=== PATIENT | female | born 1950 | race Caucasian/White ===

== ENCOUNTER → 2018-09-12 11:46 | Outpatient (CLI) | payer MEDICARE, OTHER, SELFPAY ==
--- NOTE | 2018-09-12 | DI.RAD.S_ITS ---
PROCEDURE: XR CHEST 2V INDICATIONS: ACUTE COUGH, DECREASED BREATH SOUNDS TECHNIQUE: 2 views of the chest were acquired. COMPARISON: None. FINDINGS: Surgical changes and devices: None. Lungs and pleura: No pleural effusions or pneumothorax. Subtle infiltrate in the right lower lobe. There is a nodular density in the left lower lung zone likely caused by the the nipple shadow. Hyperinflation consistent with COPD. Mediastinum: Mediastinal contours are normal. Heart size is normal. Bones and chest wall: No suspicious bony abnormalities. Soft tissues appear unremarkable. IMPRESSION: 1. Subtle infiltrate in the right lower lobe suggesting developing pneumonia. 2. Suspect COPD. Dictated by: Idalia Mcgee M.D. on 09/12/2018 at 13:49 Approved by: Idalia Mcgee M.D. on 09/12/2018 at 13:51
== END ==
PROVIDERS: PCP Nurse Practitioner Family; Visit Provider Nurse Practitioner Family
DX: R05 Cough (principal); R09.89 Other specified symptoms and signs involving the circulatory and respiratory systems
CPT/HCPCS: 71046

== ENCOUNTER → 2019-01-12 11:03 | Outpatient (CLI) | payer MEDICARE, OTHER, SELFPAY ==
--- NOTE | 2019-01-12 | DI.US.S_ITS ---
PROCEDURE: US THYROID INDICATIONS: THYROID NODULE FOLLOW UP TECHNIQUE: Real-time scanning was performed of the thyroid gland, with image documentation. COMPARISON: [facility], US, US THYROID, 01/23/2018, 10:25. FINDINGS: Right: Thyroid lobe measures 4.5 x 1.6 x 1.4 cm, and is homogeneous in echotexture. Left: Thyroid lobe measures 4.4 x 1.5 x 1.2 cm, and is homogenous in echotexture. Nodule number: 1 Location: Right superior Size: 0.7 x 0.4 x 0.5 cm. Composition: Predominantly cystic Echogenicity: Markedly hypoechoic Shape: Wider than tall Margins: Smooth Echogenic foci: Macro-calcifications Total points: 5 ACR TI-RADS category: Moderately suspicious Nodule number: 2 Location: Right inferior Size: 1.6 x 0.7 x 1.1 cm. Composition: Predominantly solid Echogenicity: Hypoechoic Shape: Wider than tall Margins: Smooth Echogenic foci: Macrocalcifications Total points: 4 ACR TI-RADS category: Moderately suspicious Nodule number: 3 Location: Left superior Size: 0.8 x 0.7 x 0.7 cm. Composition: Predominantly solid Echogenicity: Hypoechoic Shape: Wider than tall Margins: Ill-defined Echogenic foci: None Total points: 4 ACR TI-RADS category: Moderately suspicious Nodule number: 4 Location: Left mid Size: 2.8 x 0.7 x 0.7 cm. Composition: Predominantly solid Echogenicity: Isoechoic Shape: Wider than tall Margins: Smooth Echogenic foci: None Total points: 3 ACR TI-RADS category: Mildly suspicious IMPRESSION: Numerous thyroid nodules. Nodules 1-3 demonstrate moderate suspicious ultrasound characteristics. Nodule 4 is new and demonstrates mildly suspicious ultrasound characteristics. Nodule involving the inferior margin of the right lobe of the thyroid gland (nodule 2) is increased in size compared to 01/23/2018. Consider ultrasound-guided fine needle aspiration of thyroid nodules if clinically indicated. ACR TI-RADS definitions and recommendations: TI-RADS 1 (benign): 0 points. FNA not needed. TI-RADS 2 (not suspicious): 2 points. FNA not needed. TI-RADS 3 (mildly suspicious): 3 points. * FNA if 2.5 cm or larger, follow up if 1.5 cm or larger (at 1, 3, and 5 years). TI-RADS 4 (moderately suspicious): 4-6 points. * FNA if 1.5 cm or larger, follow up if 1 cm or larger (at 1, 2, 3, and 5 years). TI-RADS 5 (highly suspicious): 7 points or more. * FNA if 1 cm or larger, follow up if 0.5 cm or larger (every year for 5 years). Dictated by: Brie Wade MD, PhD on 01/12/2019 at 14:18 Approved by: Brie Wade MD, PhD on 01/12/2019 at 14:33
== END ==
PROVIDERS: PCP Nurse Practitioner Family; Visit Provider Nurse Practitioner Family
DX: E04.2 Nontoxic multinodular goiter (principal)
CPT/HCPCS: 76536

== ENCOUNTER → 2019-02-02 13:47 | Outpatient (CLI) | payer MEDICARE, OTHER, SELFPAY ==
--- NOTE | 2019-02-02 | PATH_ITS ---
Note [facility] Accession Number: [id number] TESTS RESULT FLAG UNITS REF RANGE LAB Clinician Provided Cytology Information No. of containers..01 ThinPrep Vial No. of containers..06 Previously Prepared Cytology Slide RIGHT THYROID NODULE DIAGNOSIS: 02 RIGHT THYROID NODULE INCONCLUSIVE. BETHES[place] CATEGORY III. ATYPIA OF UNDETERMINED SIGNIFICANCE. COMMENT: Scant follicular cell groups are present with rare groups that demonstrate focal cytologic atypa. A repeat aspirate after an appropriate interval of observation could be considered, if clinically indicated. Pathologist ICD10: 02 R89.6 02 Bhargavi Bernal MD, Pathologist NPI- [id number] Skinny Chaudhari, Electrical Design Technician ([facility]) 01 30 CC, PINK, CLEAR RECEIVED: 8 ALCOHOL FIXED AND 8 QUICK STAINED SLIDES WITH 1 RNA VIAL FOR FURTHER TESTING. /VDU FLAG LEGEND: L-Low Normal,H-High Normal,LL-Alert Low,HH-Alert High <-Panic Low,>-Panic High,A-Abnormal,AA-Critical Abnormal Performed at: 01 =Z [facility] [address], [place] [address] Brayden Preciado MD, 02 [facility] [address] [place] [id number] Julianne Moore MD, Performed at: 01 [facility] [address], [place], [place] [id number] MD Brayden Preciado MD Phone: [phone]
--- NOTE | 2019-02-02 | DI.US.S_ITS ---
PROCEDURE: US FINE NEEDLE ASPIRATION INDICATIONS: THYROID NODULES TECHNIQUE: The indications, alternatives, benefits, risks, and complications of the procedure were explained to the patient. Written informed consent was obtained and placed in the chart. The area of interest was examined sonographically and a site was chosen for ultrasound guided percutaneous sampling. The skin was prepared and draped in the usual fashion, and anesthetized with 1% lidocaine infiltrated from the skin down to the lesion. Multiple passes were then performed, with contents emptied into an appropriate pathology specimen container. A bandage was applied to the area of access at completion of the study. COMPARISON: None. FINDINGS: Location(s) of lesion(s) sampled: Inferior right lobe [place]: 22 and 25 gauge hypodermic needles. Number of passes: 9 Medications: 1% lidocaine for local anaesthesia. Complications: None. IMPRESSION: Successful ultrasound-guided inferior right lobe thyroid nodule fine needle aspiration, with cytology results pending. Dictated by: Rupert Esqueda M.D. on 02/02/2019 at 16:58 Approved by: Rupert Esqueda M.D. on 02/02/2019 at 16:59
== END ==
PROVIDERS: PCP Nurse Practitioner Family; Visit Provider Nurse Practitioner Family
DX: E04.2 Nontoxic multinodular goiter (principal)
CPT/HCPCS: 10005

== ENCOUNTER → 2019-06-19 11:54 | Outpatient (CLI) | payer MEDICARE, OTHER, SELFPAY ==
--- NOTE | 2019-06-19 | DI.US.S_ITS ---
PROCEDURE: US PELVIC COMPLETE INDICATIONS: PELVIC PAIN TECHNIQUE: Real-time scanning was performed of the pelvic organs, with image documentation. Additional endovaginal scanning was necessary due to incomplete visualization of the adnexal and endometrial structures by transabdominal scanning. COMPARISON: [place], [place], PET/CT NECK TO MID THIGH, 05/23/2013, 9:13. FINDINGS: Transabdominal scanning: Limited scanning through the kidneys shows no hydronephrosis. Complex cyst involves a inferior pole of the right kidney measuring 3.1 x 3.0 x 2.5 cm which appears unchanged from prior PET scan dated 05/23/13. Simple cyst involves the midpole of the left kidney measuring 1.8 x 1.7 x 1.6 cm. No pathologic free abdominal or pelvic fluid. Endovaginal scanning: Uterus: Uterus is normal in size at 6.1 x 4.4 x 2.5 cm. The endometrium measures 3.8 mm in combined thickness. Mild amount of endometrial fluid present. Posterior intramural fibroid measuring 1.3 x 1.2 x 1.2 cm. 2 subserosal fibroids, largest measuring 1.7 x 1.6 x 1.3 cm and the smaller 1.6 x 1.5 x 0.8 cm. Ovaries: Ovaries are normal bilaterally measuring 1.8 x 1.4 x 0.9 cm on the right and 1.7 x 1.4 x 1.0 cm on the left. Urinary bladder diverticulum noted. IMPRESSION: 1. No source for pelvic pain identified. 2. Uterine fibroids, largest measuring up to 1.7 cm. 3. Complex cyst (Bosniak 2F) involves the right kidney which is unchanged in size compared to prior PET scan. Continued sonographic surveillance is recommended. 4. Urinary bladder diverticulum. Dictated by: Kev JARRETT Interpreted: Brie Wade MD on 06/20/2019 at 8:16 Approved by: Brie Wade MD, PhD on 06/20/2019 at 10:34
== END ==
PROVIDERS: PCP Nurse Practitioner Family; Visit Provider Nurse Practitioner Family
DX: R10.2 Pelvic and perineal pain (principal); D25.1 Intramural leiomyoma of uterus; D25.2 Subserosal leiomyoma of uterus; N28.1 Cyst of kidney, acquired; N32.3 Diverticulum of bladder
CPT/HCPCS: 76830; 76856

== ENCOUNTER → 2019-10-18 11:35 | Outpatient (CLI) | payer MEDICARE, OTHER, SELFPAY | PROVIDERS: PCP Nurse Practitioner Family; Visit Provider Nurse Practitioner Family | DX: R20.9 Unspecified disturbances of skin sensation (principal); R20.0 Anesthesia of skin | CPT/HCPCS: 95886; 95909 ==

== ENCOUNTER → 2020-01-17 10:53 | Outpatient (CLI) | payer MEDICARE, OTHER, SELFPAY ==
--- NOTE | 2020-01-17 | DI.US.S_ITS ---
PROCEDURE: US ABDOMEN COMPLETE INDICATIONS: ABDOMINAL PAIN TECHNIQUE: Real-time scanning was performed of the abdominal and retroperitoneal organs, with image documentation. COMPARISON: None. FINDINGS: Liver: Liver is normal in size and homogeneous in echotexture. Gallbladder: Status post cholecystectomy Biliary ducts: Intrahepatic bile ducts are non-dilated. Extrahepatic bile duct caliber measures 5-6 mm. Normal is 6-7 mm or less in diameter, or 10 mm or less post-cholecystectomy. Pancreas: Visualized portions of the pancreas are sonographically normal. Spleen: Spleen is normal in size and homogeneous in echotexture. Kidneys: Kidneys are normal in size and echotexture. Right kidney measures 9.0 cm long; left kidney measures 9.0 cm long. No hydronephrosis or nephrolithiasis. No solid masses. Complex right renal cyst measuring 2.7 x 2.4 x 2.5 cm with poorly defined low level internal echoes. Simple appearing left renal cyst measuring 2.0 x 1.6 x 1.3 cm Aorta: Visualized aorta is normal in caliber at less than 3 cm. Scattered vascular calcifications seen in the aorta. Iliacs: Proximal common iliac arteries are normal in caliber at less than 2.5 cm. IVC: Intrahepatic inferior vena cava is patent. Miscellaneous: No free abdominal fluid. Incidentally noted left pleural effusion IMPRESSION: Mildly complex right renal cyst with low level internal echoes. Recommend followup ultrasound in 6 months to document stability, given the absence of any relevant prior comparison studies. Simple left renal cyst Status postcholecystectomy Incidentally noted left pleural effusion Dictated by: uRpert Esqueda M.D. on 01/17/2020 at 14:27 Approved by: Rupert Esqueda M.D. on 01/17/2020 at 14:32
--- NOTE | 2020-01-17 | DI.US.S_ITS ---
PROCEDURE: US PELVIC COMPLETE INDICATIONS: POSTMENOPAUSAL BLEEDING TECHNIQUE: Real-time scanning was performed of the pelvic organs, with image documentation. Additional endovaginal scanning was necessary due to incomplete visualization of the adnexal and endometrial structures by transabdominal scanning. COMPARISON: [facility], PELVIC COMPLETE, 06/19/2019, 12:27. FINDINGS: Transabdominal scanning: Limited scanning through the kidneys shows no hydronephrosis. No pathologic free abdominal or pelvic fluid. Endovaginal scanning: Uterus: Uterus is normal in size at 7.2 x 2.7 x 3.9 cm. The endometrium measures 3.9 mm in combined thickness. Trace endometrial fluid. 2 subserosal fibroids, largest measured 1.6 cm and there is a 1.5 cm intramural fibroid. Ovaries: Ovaries normal in size measuring 1.9 x 1.2 x 1.5 cm on the right and 1.4 x 0.9 x 0.9 centimeters on the left. No ovarian or adnexal masses. IMPRESSION: 1. Endometrial complex within normal limits and there is trace endometrial fluid. 2. Multiple fibroids, largest measuring up to 1.6 cm. Dictated by: Kev Wright [facility] Interpreted: Vanna Burciaga MD on 01/17/2020 at 14:51 Approved by: Vanna Burciaga M.D. on 01/17/2020 at 16:02
== END ==
PROVIDERS: PCP Internal Medicine; Referring Provider Internal Medicine; Visit Provider Internal Medicine
DX: R10.9 Unspecified abdominal pain (principal); N95.0 Postmenopausal bleeding; J90 Pleural effusion, not elsewhere classified; N28.1 Cyst of kidney, acquired; D25.2 Subserosal leiomyoma of uterus; D25.1 Intramural leiomyoma of uterus; Z90.49 Acquired absence of other specified parts of digestive tract
CPT/HCPCS: 76700; 76830; 76856

== ENCOUNTER 2021-06-21 12:00 | Emergency (ER) | payer MEDICARE, OTHER, SELFPAY ==
[2021-06-21 12:16] VITALS: BP 109/52; PULSE 104; RESP 16; TEMP 37; O2SAT 95; BMI 18.3
--- NOTE | 2021-06-21 12:19 | DI.RAD.S_ITS ---
PROCEDURE: XR CHEST 2V INDICATIONS: cough TECHNIQUE: 2 views of the chest were acquired. COMPARISON: [facility], CR, CHEST 2VW, 02/06/2014, 13:01. [facility], CR, XR CHEST 2 VIEWS, 08/23/2018, 13:15. FINDINGS: Surgical changes and devices: There is a right upper quadrant clips. Lungs and pleura: A small to moderate left-sided pleural effusion is seen, with overlying density. No pneumothorax is seen. No focal infiltrates are seen. Mediastinum: Mediastinal contours are normal. Heart size is normal. Atherosclerotic calcification of the aortic arch is noted. Bones and chest wall: No suspicious bony abnormalities. Age-appropriate bony degenerative changes are seen. Soft tissues appear unremarkable. IMPRESSION: Small to moderate left-sided pleural effusion, with overlying presumed atelectasis. Dictated by: Galo Luna M.D. on 06/21/2021 at 11:56 Approved by: Galo Luna M.D. on 06/21/2021 at 11:57
[2021-06-21 12:52] LABS: COVID19 -Nasal RAPID Negative (Negative)
[2021-06-21 13:16] VITALS: BP 129/60; PULSE 98; TEMP 36.8; O2SAT 92
--- NOTE | 2021-06-21 14:39 | ED.SOB ---
HPI - SOB/Dyspnea General Chief Complaint: Upper Respiratory Symptoms Stated Complaint: cough/headache/shortness of breath /stomach ache Time Seen by Provider: 06/21/21 14:26 History of Present Illness HPI Narrative: Patient is a 71-year-old female with remote history of lung cancer previously treated, presenting today with 5 days of cough. She and her state that they received COVID vaccination in December. She is followed in [place] for her cancer where she is scans every 6 months and she had a scan a few weeks ago they stated everything was the same. She is known to have some fluid on her left lung but it seems stable. She denies any fever or chills. She is having some weakness. She is not noting any significant shortness of breath. But does have an obvious cough. She denies any chest pain. Has been states that she is having abdominal pain although she denies having abdominal pain. She has gone 1 day without a bowel movement which is abnormal for her. She denies any nausea or vomiting. She denies any orthopnea or lower extremity edema. Related Data Home Medications Medication Instructions Recorded Confirmed [NEXIUM] 30 mg PO Q DAY #0 02/22/13 Previous Rx's Medication Instructions Recorded albuterol sulfate 90 mcg/actuation 2 puff INHALATION Q4-6H PRN #8.5 06/21/21 aerosol inhaler gram doxycycline hyclate 100 mg capsule 100 mg PO BID #14 cap 06/21/21 prednisone 20 mg tablet 40 mg PO DAILY #10 tab 06/21/21 Allergies Allergy/AdvReac Type Severity Reaction Status Date / Time PENICILLIN Allergy Mild Uncoded 02/22/18 12:24 Review of Systems Review of Systems Narrative: GENERAL: Denies chills, fatigue, malaise, fever, sweats, travel HEENT: Denies sinus pain, ear pain, sore throat, difficulty swallowing, neck pain RESPIRATORY: See HPI CARDIOVASCULAR: Denies chest pain, palpitations, orthopnea, edema GASTROINTESTINAL: Denies nausea, vomiting, abdominal pain, diarrhea, constipation, melena. : Denies dysuria, frequency, incontinence, hematuria, urinary retention, flank pain. MUSCULOSKELETAL: Denies weakness, joint pain, or bony pain SKIN: No rash, no erythema, no pruritus NEUROLOGIC: Denies weakness, dizziness, headache, numbness, change in speech, confusion PSYCHIATRIC: No concerning psychosocial issues. 12 point review of systems is negative except for those stated above and HPI Patient History Social History Smoking Status: Former smoker Smoking Status: Former smoker alcohol intake frequency: holidays/special occasions only Substance Use Type: does not use Exam Initial Vital Signs Initial Vital Signs: Vital Signs Temperature 98.6 F 06/21/21 12:16 Pulse Rate 104 H 06/21/21 12:16 Respiratory Rate 16 06/21/21 12:16 Blood Pressure 109/52 L 06/21/21 12:16 Pulse Oximetry 95 06/21/21 12:16 GENERAL: Alert thin 71-year-old female HEENT: Head atraumatic,EOMI, pupils reactive, face symmetric, moist mucous membranes CARDIOVASCULAR: Regular rate and rhythm without murmurs, rubs or gallops. RESPIRATORY: Slightly decreased breath sounds on the left side no wheezing no respiratory distress ABDOMEN: Soft, nontender. Normoactive bowel sounds all 4 quadrants. No guarding or rebound. EXTREMITIES: Normal range of motion, no clubbing or edema. Neurovascularly intact NEUROLOGICAL: Alert and oriented x4.Normal gait and speech. SKIN: Warm, dry, no laceration, no petechiae, no rashes or lesions. Course Orders Ordered: ED Orders 06/21/21 12:19 XR chest 2V Stat 06/21/21 12:25 COVID19 -Nasal swab/Pre-Proc Stat 06/21/21 14:36 Consult to Respiratory Therapy Evaluate & Treat 06/21/21 14:45 Complete Blood Count AUTO DIFF Stat Comprehensive Metabolic Panel Stat Lactate (Lactic Acid) Stat Magnesium Stat NT-proBNP (BNP-Adult 18+) Stat Procalcitonin Stat Troponin & CK Cardiac Panel Stat 06/21/21 15:19 EKG-12 Lead Stat 06/21/21 15:35 Blood Culture Stat Discontinued Medications Albuterol/Ipratropium (Albuterol/Ipratropium 3 Ml Ampul) 3 ml INH NOW ONE Stop: 06/21/21 14:37 Last Admin: 06/21/21 14:50 Dose: 3 ml Documented by: LORENZA Methylprednisolone (Methylprednisolone 125 Mg/2 Ml Vial) 125 mg IV NOW ONE Stop: 06/21/21 14:37 Last Admin: 06/21/21 15:03 Dose: 125 mg Documented by: HANSA Vital Signs Vital signs: Vital Signs - 8 hr 06/21/21 12:16 06/21/21 13:16 06/21/21 14:54 Temperature 98.6 F 98.3 F Pulse Rate 104 H 98 H 90 Respiratory Rate 16 20 Blood Pressure 109/52 L 129/60 Pulse Oximetry 95 92 97 06/21/21 15:00 06/21/21 15:57 Temperature 99 F 99 F Pulse Rate 95 H 95 H Respiratory Rate 18 18 Blood Pressure 124/60 124/60 Pulse Oximetry 96 96 MDM - SOB/Dyspnea Lab Data Result diagrams: 06/21/21 14:45 06/21/21 14:45 Labs: Lab Results 06/21/21 06/21/21 06/21/21 Range/Units 12:25 14:45 14:45 WBC 16.2 H (4.5-11.0) X10^3/uL RBC 4.48 (4.0-5.2) X10^6/uL Hgb 12.7 (12.0-16.0) g/dL Hct 38.6 (36-46) % MCV 86.1 (80-100) fL MCH 28.4 (26-34) PG MCHC 33.0 (30-36) % RDW 15.1 H (11.6-14.8) % Plt Count 407 H (150-400) X10^3/uL Neut % (Auto) 91.1 H (50-75) % Lymph % (Auto) 3.2 L (25-40) % [place] % (Auto) 5.2 (3-14) % Eos % (Auto) 0.3 L (2-4) % Baso % (Auto) 0.2 (0-2) % Neut # (Auto) 15775 H (5699-4840) /uL Lymph # (Auto) 500 L (5507-2097) /uL [place] # (Auto) 800 (0-900) /uL Eos # (Auto) 100 (0-450) /uL Baso # (Auto) 0 (0-100) /uL Sodium (137-145) mmol/L Potassium (3.4-5.1) mmol/L Chloride (98-107) mmol/L Carbon Dioxide (22-32) mmol/L BUN (7-17) mg/dL Creatinine (0.52-1.04) mg/dL Estimated GFR (>60) mL/min BUN/Creatinine Ratio (6-22) Glucose (80-110) mg/dL Lactate (0.7-2.1) mmol/L Calcium (8.4-10.2) mg/dL Magnesium 2.0 (1.6-2.3) mg/dL Total Bilirubin (0.2-1.3) mg/dL AST (14-36) IU/L ALT (<35) IU/L Alkaline Phosphatase (38-126) U/L Total Creatine Kinase 33 (30-135) U/L CK-MB (CK-2) TNP CK-MB (CK-2) Rel Index TNP Troponin I < 0.012 (0.01-0.034) ng/mL NT-Pro-B Natriuret Pep 1450 H (<125) pg/mL Total Protein (6.3-8.2) g/dL Albumin (3.5-5.0) g/dL Globulin (1.7-4.1) g/dL Albumin/Globulin Ratio (1.0-2.8) Procalcitonin 0.12 (<0.5) ng/mL SARS-CoV-2 (PCR) Negative (Negative) 06/21/21 06/21/21 Range/Units 14:45 14:45 WBC (4.5-11.0) X10^3/uL RBC (4.0-5.2) X10^6/uL Hgb (12.0-16.0) g/dL Hct (36-46) % MCV (80-100) fL MCH (26-34) PG MCHC (30-36) % RDW (11.6-14.8) % Plt Count (150-400) X10^3/uL Neut % (Auto) (50-75) % Lymph % (Auto) (25-40) % [place] % (Auto) (3-14) % Eos % (Auto) (2-4) % Baso % (Auto) (0-2) % Neut # (Auto) (1552-3846) /uL Lymph # (Auto) (4310-6995) /uL [place] # (Auto) (0-900) /uL Eos # (Auto) (0-450) /uL Baso # (Auto) (0-100) /uL Sodium 139 (137-145) mmol/L Potassium 3.8 (3.4-5.1) mmol/L Chloride 103 (98-107) mmol/L Carbon Dioxide 29 (22-32) mmol/L BUN 25 H (7-17) mg/dL Creatinine 0.81 (0.52-1.04) mg/dL Estimated GFR > 60.0 (>60) mL/min BUN/Creatinine Ratio 30.9 H (6-22) Glucose 114 H (80-110) mg/dL Lactate 0.8 (0.7-2.1) mmol/L Calcium 9.9 (8.4-10.2) mg/dL Magnesium (1.6-2.3) mg/dL Total Bilirubin 0.6 (0.2-1.3) mg/dL AST 25 (14-36) IU/L ALT 28 (<35) IU/L Alkaline Phosphatase 80 (38-126) U/L Total Creatine Kinase (30-135) U/L CK-MB (CK-2) CK-MB (CK-2) Rel Index Troponin I (0.01-0.034) ng/mL NT-Pro-B Natriuret Pep (<125) pg/mL Total Protein 7.0 (6.3-8.2) g/dL Albumin 3.9 (3.5-5.0) g/dL Globulin 3.1 (1.7-4.1) g/dL Albumin/Globulin Ratio 1.3 (1.0-2.8) Procalcitonin (<0.5) ng/mL SARS-CoV-2 (PCR) (Negative) Imaging Data Chest x-ray: Radiologist's Impression: PROCEDURE: XR CHEST 2V INDICATIONS: cough TECHNIQUE: 2 views of the chest were acquired. COMPARISON: [facility], , CHEST 2VW, 02/06/2014, 13:01. [facility], , XR CHEST 2 VIEWS, 08/23/2018, 13:15. FINDINGS: Surgical changes and devices: There is a right upper quadrant clips. Lungs and pleura: A small to moderate left-sided pleural effusion is seen, with overlying density. No pneumothorax is seen. No focal infiltrates are seen. Mediastinum: Mediastinal contours are normal. Heart size is normal. Atherosclerotic calcification of the aortic arch is noted. Bones and chest wall: No suspicious bony abnormalities. Age-appropriate bony degenerative changes are seen. Soft tissues appear unremarkable. IMPRESSION: Small to moderate left-sided pleural effusion, with overlying presumed atelectasis. Dictated by: Galo Luna M.D. on 06/21/2021 at 11:56 ECG Data Interpretation: Sinus rhythm rate 95 [place] interval 114 QRS [address] changes no T-wave inversion MDM Narrative Medical decision making narrative: Patient is a 71-year-old female overall appears well. She has probable COPD she quit smoking 1 month ago. She does have pleural effusion on her chest x-ray which causes for it may be stable but records from outside facility unavailable. Patient has leukocytosis but is afebrile. She is feeling better after bronchodilators. Will treat her for COPD exacerbation with prednisone bronchodilators and doxycycline. Symptoms are not consistent with pulmonary embolism. Discharge Plan Departure Patient Disposition: Home Clinical Impression: COPD exacerbation Instructions: DI for Chronic Obstructive Pulmonary Disease Activity Restrictions/Additional Instructions: *You have been diagnosed with COPD exacerbation *What to do: At this time blood work is overall reassuring. X-ray does show small amount of fluid on the left side which may be stable *Continue to take medications as directed Prednisone 40 mg once a day for 5 days Doxycycline 100 mg twice daily for 7 days Albuterol 1-2 puffs every 4 hours if needed for cough and shortness of breath *Follow up with your primary care provider in 2-3 days *Return to ER if you should have increasing shortness of breath, chest pain, cough or any new, worsening or concerning symptoms Prescriptions: New doxycycline hyclate 100 mg capsule 100 mg PO BID Qty: 14 RF: 0 prednisone 20 mg tablet 40 mg PO DAILY Qty: 10 RF: 0 albuterol sulfate 90 mcg/actuation HFA aerosol inhaler 2 puff INHALATION Q4-6H PRN (Reason: shortness of breath or wheezing) Qty: 8.5 RF: 0 No Action [NEXIUM] 30 mg PO Q DAY Qty: 0 RF: 0 Referrals: Mara Price ARNP [Primary Care Provider] -
[2021-06-21] MEDS: ALBUTEROL/IPRATROPIUM 3 ML AMPUL INH (14:50)
[2021-06-21 14:54] VITALS: PULSE 90; RESP 20; O2SAT 97
[2021-06-21 15:00] VITALS: BP 124/60; PULSE 95; RESP 18; TEMP 37.2; O2SAT 96
[2021-06-21] MEDS: methylPREDNISolone 125 MG/2 ML VIAL IV (15:03)
[2021-06-21 15:04] LABS: Add Manual Diff / Slide Review NO; Basophils Absolute Auto 0 /uL (0-100); Basophils Percent Auto 0.2 % (0-2); Eosinophils Absolute Auto 100 /uL (0-450); Eosinophils Percent Auto 0.3 % (2-4); Hematocrit 38.6 % (36-46); Hemoglobin 12.7 g/dL (12.0-16.0); Lymphocytes Absolute Auto 500 /uL (1100-4500); Lymphocytes Percent Auto 3.2 % (25-40); Mean Corpuscular Hemoglobin 28.4 PG (26-34); Mean Corpuscular Volume 86.1 fL (80-100); Monocytes Absolute Auto 800 /uL (0-900); Monocytes Percent Auto 5.2 % (3-14); Neutrophils Absolute Auto 14800 /uL (1500-7000); Neutrophils Percent Auto 91.1 % (50-75); Platelet Count 407 X10^3/uL (150-400); Red Blood Cell Count 4.48 X10^6/uL (4.0-5.2); Red Cell Distribution Width 15.1 % (11.6-14.8); White Blood Cell Count 16.2 X10^3/uL (4.5-11.0)
[2021-06-21 15:19] LABS: Alanine Aminotransferase 28 IU/L (<35); Albumin 3.9 g/dL (3.5-5.0); Albumin Globulin Ratio 1.3 (1.0-2.8); Alkaline Phosphatase 80 U/L (38-126); Aspartate Aminotransferase 25 IU/L (14-36); BUN Creatinine Ratio 30.9 (6-22); Bilirubin Total 0.6 mg/dL (0.2-1.3); Blood Urea Nitrogen 25 mg/dL (7-17); Calcium 9.9 mg/dL (8.4-10.2); Carbon Dioxide 29 mmol/L (22-32); Chloride 103 mmol/L (98-107); Estimated Glomerular Filt Rate > 60.0 mL/min (>60); Globulin 3.1 g/dL (1.7-4.1); Glucose 114 mg/dL (80-110); HEMOLYSIS < 15 (0-50); Potassium 3.8 mmol/L (3.4-5.1); Sodium 139 mmol/L (137-145)
[2021-06-21 15:20] LABS: Lactate (Lactic Acid) 0.8 mmol/L (0.7-2.1)
[2021-06-21 15:28] LABS: Creatine Kinase 33 U/L (30-135)
[2021-06-21 15:41] LABS: NT-proBNP (BNP-Adult 18+) 1450 pg/mL (<125); Troponin I < 0.012 ng/mL (0.01-0.034)
[2021-06-21 15:46] LABS: Procalcitonin 0.12 ng/mL (<0.5)
[2021-06-21 15:57] VITALS: BP 124/60; PULSE 95; RESP 18; TEMP 37.2; O2SAT 96
== END 2021-06-21 15:57 | disposition home or self-care (01) ==
PROVIDERS: Emergency Provider Emergency Medicine; PCP Internal Medicine
DX: J44.1 Chronic obstructive pulmonary disease with (acute) exacerbation (principal); Z20.822 Contact with and (suspected) exposure to COVID-19
CPT/HCPCS: 36415; 71046; 80053; 82550; 83605; 83735; 83880; 84145; 84484; 85025; 87040; 87635; 93005; 94640; 96374; 99284; C9803; J2930

== ENCOUNTER 2023-10-26 13:50 | Emergency (ER) | payer MEDICARE, SELFPAY ==
[2023-10-26 13:52] VITALS: BP 112/50; PULSE 97; RESP 20; TEMP 36.3; O2SAT 97; BMI 15.1
--- NOTE | 2023-10-26 15:40 | ED_ITS ---
HPI - Female Genitourinary <Mariia Paul PA-C - Last Filed: 10/26/23 18:39> General Chief complaint: Urogenital-Female Stated complaint: dehydrated and poss UTI Time Seen by Provider: 10/26/23 15:29 Source: patient Mode of arrival: Ambulatory History of Present Illness HPI Narrative: Patient is a 73-year-old female with a history of lung cancer, in remission, COPD and early dementia. She is brought in by her today due to concern for possible urinary tract infection, dehydration, increasing confusion and generalized weakness. Their neighbor is a medic and saw patient yesterday, thought she should go to the hospital. When asked why she is here, patient states I feel fine. Has been reports increasing fatigue, disinterested in eating or drinking. These symptoms seem to be acute on chronic. Related Data Home Medications Medication Instructions Recorded Confirmed [NEXIUM] 30 mg PO Q DAY ##0 02/22/13 09/12/23 cholecalciferol (vitamin D3) 10 10 mcg PO DAILY 09/12/23 09/12/23 mcg (400 unit) capsule galantamine 8 mg 24 hr 8 mg PO QAM 09/12/23 09/12/23 capsule,extended release Previous Rx's Medication Instructions Recorded tiotropium 2.5 mcg-olodaterol 2.5 2 puff inhalation DAILY #4 grams 06/01/23 mcg/actuation mist for inhalation (Stiolto Respimat) cefdinir 300 mg capsule 300 mg PO BID #10 caps 10/26/23 Allergies Allergy/AdvReac Type Severity Reaction Status Date / Time PENICILLIN Allergy Mild Uncoded 09/12/23 11:54 Review of Systems <Mariia Paul PA-C - Last Filed: 10/26/23 18:39> Review of Systems ROS Unobtainable: All systems reviewed & are unremarkable except as noted in HPI and below Patient History <Mariia Paul PA-C - Last Filed: 10/26/23 18:39> Medical History Vision disorder COPD (chronic obstructive pulmonary disease) Chronic back pain Dementia tobacco type: cigarettes alcohol intake frequency: holidays/special occasions only Substance Use Type: does not use Exam <Mariia Paul PA-C - Last Filed: 10/26/23 18:39> Narrative Exam Narrative: GENERAL: 73 year old patient appears well kempt, very thin. NEURO: Alert, oriented to self, ,hospital. Unable to state month or year. HEAD: Atraumatic. Normocephalic. EYES: Pupils equal round and reactive. Extraocular motions intact. No scleral icterus. No injection or drainage. ENT: Nose without bleeding or purulent drainage. Airway patent. NECK: Trachea midline. Non tender CARDIOVASCULAR: Regular rate and rhythm without murmurs, gallops, or rubs. RESPIRATORY: Clear to auscultation. Breath sounds equal bilaterally. No wheezes, rales, or rhonchi. ABDOMEN: Soft, no CVA tenderness EXTREMITIES: No edema or joint tenderness. SKIN: No rash or erythema of visible areas Initial Vital Signs Initial Vital Signs: Vital Signs Temperature 97.3 F L 10/26/23 13:52 Pulse Rate 97 H 10/26/23 13:52 Respiratory Rate 20 10/26/23 13:52 Blood Pressure 112/50 L 10/26/23 13:52 Pulse Oximetry 97 10/26/23 13:52 Oxygen Delivery Method Room Air 10/26/23 13:52 <Cheryl Castillo MD - Last Filed: 10/26/23 18:42> Initial Vital Signs Initial Vital Signs: Vital Signs Temperature 97.3 F L 10/26/23 13:52 Pulse Rate 97 H 10/26/23 13:52 Respiratory Rate 20 10/26/23 13:52 Blood Pressure 112/50 L 10/26/23 13:52 Pulse Oximetry 97 10/26/23 13:52 Oxygen Delivery Method Room Air 10/26/23 13:52 Course <Mariia Paul PA-C - Last Filed: 10/26/23 18:39> Orders Ordered: ED Orders 10/26/23 14:00 Urine Culture Stat Urine Microscopic Stat 10/26/23 15:48 CBC Auto Diff [Complete Blood Count AUTO DIFF] Stat CMP [Comprehensive Metabolic Panel] Stat Discontinued Medications Sodium Chloride (Normal Saline 0.9%) 1,000 mls @ 1,000 mls/hr IV BOLUS ONE Stop: 10/26/23 16:36 Last Infusion: 10/26/23 16:52 Dose: Infused Documented By: Admin: 10/26/23 15:53 Dose: 1,000 mls/hr Documented By: JESENIA Sodium Chloride (Normal Saline 0.9%) 1,000 mls @ 1,000 mls/hr IV BOLUS ONE Stop: 10/26/23 18:12 Last Admin: 10/26/23 17:23 Dose: 1,000 mls/hr Documented By: JESENIA Ceftriaxone Sodium 1,000 mg/ (Sodium Chloride) 100 mls @ 200 mls/hr IV NOW ONE Stop: 10/26/23 17:14 Last Admin: 10/26/23 17:23 Dose: 200 mls/hr Documented By: JESENIA Reevaluation(s) Reevaluation #1: 1700: Patient eating Saba's with her , appears more alert, states I am hungry Vital Signs Vital signs: Vital Signs - 8 hr 10/26/23 13:52 10/26/23 16:24 Temperature 97.3 F L Pulse Rate 97 H 78 Respiratory Rate 20 20 Blood Pressure 112/50 L 130/58 L Pulse Oximetry 97 95 Oxygen Delivery Method Room Air Room Air <Cheryl Castillo MD - Last Filed: 10/26/23 18:42> Orders Ordered: ED Orders 10/26/23 14:00 Urine Culture Stat Urine Microscopic Stat 10/26/23 15:48 CBC Auto Diff [Complete Blood Count AUTO DIFF] Stat CMP [Comprehensive Metabolic Panel] Stat Discontinued Medications Sodium Chloride (Normal Saline 0.9%) 1,000 mls @ 1,000 mls/hr IV BOLUS ONE Stop: 10/26/23 16:36 Last Infusion: 10/26/23 16:52 Dose: Infused Documented By: Admin: 10/26/23 15:53 Dose: 1,000 mls/hr Documented By: JESENIA Sodium Chloride (Normal Saline 0.9%) 1,000 mls @ 1,000 mls/hr IV BOLUS ONE Stop: 10/26/23 18:12 Last Admin: 10/26/23 17:23 Dose: 1,000 mls/hr Documented By: JESENIA Ceftriaxone Sodium 1,000 mg/ (Sodium Chloride) 100 mls @ 200 mls/hr IV NOW ONE Stop: 10/26/23 17:14 Last Admin: 10/26/23 17:23 Dose: 200 mls/hr Documented By: DKB Vital Signs Vital signs: Vital Signs - 8 hr 10/26/23 13:52 10/26/23 16:24 Temperature 97.3 F L Pulse Rate 97 H 78 Respiratory Rate 20 20 Blood Pressure 112/50 L 130/58 L Pulse Oximetry 97 95 Oxygen Delivery Method Room Air Room Air MDM - Female Genitourinary <Mariia Paul PA-C - Last Filed: 10/26/23 18:39> Lab Data 10/26/23 15:48 10/26/23 15:48 Labs: Lab Results 10/26/23 10/26/23 Range/Units 14:00 15:48 WBC 13.0 H (4.5-11.0) X10^3/uL RBC 4.89 (4.0-5.2) X10^6/uL Hgb 12.7 (12.0-16.0) g/dL Hct 39.1 (36-46) % MCV 79.9 L (80-100) fL MCH 26.0 (26-34) PG MCHC 32.5 (30-36) % RDW 16.1 H (11.6-14.8) % Plt Count 607 H (150-400) X10^3/uL Neut % (Auto) 90.9 H (50-75) % Lymph % (Auto) 3.4 L (25-40) % [place] % (Auto) 4.8 (3-14) % Eos % (Auto) 0.3 L (2-4) % Baso % (Auto) 0.6 (0-2) % Neut # (Auto) 91626 H (2797-8056) /uL Lymph # (Auto) 400 L (3422-1614) /uL [place] # (Auto) 600 (0-900) /uL Eos # (Auto) 0 (0-450) /uL Baso # (Auto) 100 (0-100) /uL Sodium 137 (137-145) mmol/L Potassium 3.9 (3.4-5.1) mmol/L Chloride 95 L (98-107) mmol/L Carbon Dioxide 34 H (22-32) mmol/L BUN 33 H (7-17) mg/dL Creatinine 0.62 (0.52-1.04) mg/dL Estimated GFR > 60 (>60) mL/min BUN/Creatinine Ratio 53.2 H (6-22) Glucose 127 H (80-110) mg/dL Calcium 10.2 (8.4-10.2) mg/dL Total Bilirubin 0.8 (0.2-1.3) mg/dL AST 20 (14-36) IU/L ALT 16 (<35) IU/L Alkaline Phosphatase 83 (38-126) U/L Total Protein 7.5 (6.3-8.2) g/dL Albumin 4.0 (3.5-5.0) g/dL Globulin 3.5 (1.7-4.1) g/dL Albumin/Globulin Ratio 1.1 (1.0-2.8) Urine RBC None seen (0-5/HPF) Urine WBC 5-10/hpf H (0-5/HPF) Ur Squamous Epith Cells 10-30 /hpf H (0-5/HPF) Amorphous Sediment 1+ Urine Bacteria Few (2-10) H (None) Urine Mucus 1+ H (Negative) Ur Culture Indicated? Specimen cultured Urine Dip Bedside Urine Glucose Negative Bedside Urine Bilirubin - Negative Bedside Urine Ketone - Negative Urine Specific [place] 1.025 Bedside Urine Occult Blood - Negative Bedside Urine pH 6.0 Bedside Urine Protein +/- 15 Bedside Urine Urobilinogen - Negative Bedside Urine Nitrite - Negative Bedside Urine Leukocytes +/- 15 Esterase MDM Narrative Medical decision making narrative: Multiple etiologies for patient's symptoms considered including, but not limited to: Urinary tract infection, sepsis, dehydration, failure to thrive Patient's show a leukocytosis with left shift, concerning for infection and elevated BUN, consistent with dehydration. Urine is slightly contaminated but consistent with infection. Patient received 2 L of normal saline in the emergency room, after which point she started voiding. She also received 1g of IV ceftriaxone in the emergency room, as her will not be able to pick out hand her prescription until tomorrow and I did not want her treatment be delayed. She is a high risk of complications given her baseline dementia and inability to care for herself. We will discharge with a prescription for 5 days of cefdinir. Discussed strategies for maintaining patient's hydration and encouraging to her to eat at home. Patient has lost 3 lb over the past several months, down to 83 lb. Patient's symptoms improved over duration of stay with above-stated therapies. Findings and discharge diagnosis discussed with patient/family followed by verbalization of understanding Return precautions discussed with patient/family whom verbalize understanding of diagnosis and plan <Cheryl Castillo MD - Last Filed: 10/26/23 18:42> Lab Data Labs: Lab Results 10/26/23 10/26/23 Range/Units 14:00 15:48 WBC 13.0 H (4.5-11.0) X10^3/uL RBC 4.89 (4.0-5.2) X10^6/uL Hgb 12.7 (12.0-16.0) g/dL Hct 39.1 (36-46) % MCV 79.9 L (80-100) fL MCH 26.0 (26-34) PG MCHC 32.5 (30-36) % RDW 16.1 H (11.6-14.8) % Plt Count 607 H (150-400) X10^3/uL Neut % (Auto) 90.9 H (50-75) % Lymph % (Auto) 3.4 L (25-40) % [place] % (Auto) 4.8 (3-14) % Eos % (Auto) 0.3 L (2-4) % Baso % (Auto) 0.6 (0-2) % Neut # (Auto) 90594 H (6548-8835) /uL Lymph # (Auto) 400 L (3517-9275) /uL [place] # (Auto) 600 (0-900) /uL Eos # (Auto) 0 (0-450) /uL Baso # (Auto) 100 (0-100) /uL Sodium 137 (137-145) mmol/L Potassium 3.9 (3.4-5.1) mmol/L Chloride 95 L (98-107) mmol/L Carbon Dioxide 34 H (22-32) mmol/L BUN 33 H (7-17) mg/dL Creatinine 0.62 (0.52-1.04) mg/dL Estimated GFR > 60 (>60) mL/min BUN/Creatinine Ratio 53.2 H (6-22) Glucose 127 H (80-110) mg/dL Calcium 10.2 (8.4-10.2) mg/dL Total Bilirubin 0.8 (0.2-1.3) mg/dL AST 20 (14-36) IU/L ALT 16 (<35) IU/L Alkaline Phosphatase 83 (38-126) U/L Total Protein 7.5 (6.3-8.2) g/dL Albumin 4.0 (3.5-5.0) g/dL Globulin 3.5 (1.7-4.1) g/dL Albumin/Globulin Ratio 1.1 (1.0-2.8) Urine RBC None seen (0-5/HPF) Urine WBC 5-10/hpf H (0-5/HPF) Ur Squamous Epith Cells 10-30 /hpf H (0-5/HPF) Amorphous Sediment 1+ Urine Bacteria Few (2-10) H (None) Urine Mucus 1+ H (Negative) Ur Culture Indicated? Specimen cultured Urine Dip Bedside Urine Glucose Negative Bedside Urine Bilirubin - Negative Bedside Urine Ketone - Negative Urine Specific [place] 1.025 Bedside Urine Occult Blood - Negative Bedside Urine pH 6.0 Bedside Urine Protein +/- 15 Bedside Urine Urobilinogen - Negative Bedside Urine Nitrite - Negative Bedside Urine Leukocytes +/- 15 Esterase Discharge Plan Departure Patient Disposition: Home Clinical Impression: Urinary tract infection Qualifiers: Urinary tract infection type: acute cystitis Hematuria presence: without hematuria Qualified Code(s): N30.00 - Acute cystitis without hematuria Instructions: DI for Urinary Tract Infection (UTI), DI for Urinary Retention in Women Activity Restrictions/Additional Instructions: *You have been diagnosed with urinary tract infection and dehydration. You received 2 L of normal saline fluids in the emergency room for rehydration. You also received a dose of IV antibiotics to start your treatment for urinary tract infection. I have sent a prescription for oral antibiotics you will need to take at home. You can start these tomorrow, 10/27. Please take all the antibiotics even if you are feeling better. Make sure you are drinking at least 8 glasses of water daily, at least 64 oz. please eat several meals a day and watch your weight closely, if you continue to lose weight, please follow up with your primary care provider. *What to do: *Please continue to take your regular medications as directed. [x ] [facility] medication [facility] ] [ ] New medication written as a paper prescription [ ] No new medications given *Please follow up with your primary care provider in 2-3 days, call for an appointment. Let them know you were seen in the Emergency Department and that we ask that you be seen in follow up. We will electronically transmit a record of today's note if your PCP is in our system *If you do not have a primary care provider please contact the [facility] Resource line at [phone]. They will ask some questions about your medical history and help get you set up with a doctor in the community. *Return to Emergency Department if you should have any new, worsening or concerning symptoms, such as [fever greater than 101 F, shaking chills, worsening pain, persistent vomiting or other concerning symptoms]. Prescriptions: New cefdinir 300 mg capsule 300 mg PO BID Qty: 10 0RF No Action galantamine 8 mg capsule,ext rel. pellets 24 hr 8 mg PO QAM Rx Instructions: administer with breakfast cholecalciferol (vitamin D3) 10 mcg (400 unit) capsule 10 mcg PO DAILY [NEXIUM] 30 mg PO Q DAY Qty: 0 Stiolto Respimat 2.5-2.5 mcg/actuation mist 2 puff inhalation DAILY Qty: 4 11RF Referrals: Rosa Alegria MD [Primary Care Provider] - Stand Alone Forms: Patient Portal/API ED Sign-out <Cheryl Castillo MD - Last Filed: 10/26/23 18:42> Cosign ED Attending Cosignature Attestation: I was immediately available in the department for consultation throughout this patient's visit. Cheryl Castillo MD
[2023-10-26 15:52] LABS: Amorphous Sediment Urine 1+; Bacteria Urine Few (2-10); Culture Indicated Urine Specimen Cultured; Mucus Urine 1+ (Negative); RBC Urine None Seen (0-5/HPF); Squamous Epithelial Cell Urine 10-30 /HPF (0-5/HPF); WBC Urine 5-10/HPF (0-5/HPF)
[2023-10-26] MEDS: SODIUM CHLORIDE 0.9% 1,000 ML 1000 ML IV ×2 (15:53→17:23)
[2023-10-26 16:01] LABS: Add Manual Diff / Slide Review NO; Basophils Absolute Auto 100 /uL (0-100); Basophils Percent Auto 0.6 % (0-2); Eosinophils Absolute Auto 0 /uL (0-450); Eosinophils Percent Auto 0.3 % (2-4); Hematocrit 39.1 % (36-46); Hemoglobin 12.7 g/dL (12.0-16.0); Lymphocytes Absolute Auto 400 /uL (1100-4500); Lymphocytes Percent Auto 3.4 % (25-40); Mean Corpuscular HGB Conc 32.5 % (30-36); Mean Corpuscular Volume 79.9 fL (80-100); Monocytes Absolute Auto 600 /uL (0-900); Monocytes Percent Auto 4.8 % (3-14); Neutrophils Absolute Auto 11800 /uL (1500-7000); Neutrophils Percent Auto 90.9 % (50-75); Platelet Count 607 X10^3/uL (150-400); Red Blood Cell Count 4.89 X10^6/uL (4.0-5.2); Red Cell Distribution Width 16.1 % (11.6-14.8)
[2023-10-26 16:16] LABS: Alanine Aminotransferase 16 IU/L (<35); Albumin Globulin Ratio 1.1 (1.0-2.8); Alkaline Phosphatase 83 U/L (38-126); Aspartate Aminotransferase 20 IU/L (14-36); BUN Creatinine Ratio 53.2 (6-22); Bilirubin Total 0.8 mg/dL (0.2-1.3); Blood Urea Nitrogen 33 mg/dL (7-17); Calcium 10.2 mg/dL (8.4-10.2); Carbon Dioxide 34 mmol/L (22-32); Chloride 95 mmol/L (98-107); Estimated Glomerular Filt Rate > 60 mL/min (>60); Globulin 3.5 g/dL (1.7-4.1); Glucose 127 mg/dL (80-110); HEMOLYSIS < 15 (0-50); Potassium 3.9 mmol/L (3.4-5.1); Sodium 137 mmol/L (137-145); Total Protein 7.5 g/dL (6.3-8.2)
[2023-10-26 16:24] VITALS: BP 130/58; PULSE 78; RESP 20; O2SAT 95
[2023-10-26] MEDS: cefTRIAXone 1,000 MG in SODIUM CHLORIDE 0.9% 100 ML 200 MG IV (17:23)
[2023-10-26 19:26] VITALS: BP 135/62; PULSE 88; RESP 16; TEMP 36.8; O2SAT 96
== END 2023-10-26 19:35 | disposition home or self-care (01) ==
PROVIDERS: Emergency Medicine; Emergency Provider Physician Assistant; PCP Student in an Organized Health Care Education/Training Program
DX: N39.0 Urinary tract infection, site not specified (principal)
CPT/HCPCS: 80053; 81003; 81015; 85025; 87086; 96361; 96374; 99283; J0696

== ENCOUNTER → 2023-12-27 12:45 | Outpatient (CLI) | payer MEDICARE, SELFPAY ==
[2023-12-27 14:57] LABS: Add Manual Diff / Slide Review NO; Basophils Absolute Auto 100 /uL (0-100); Basophils Percent Auto 0.5 % (0-2); Eosinophils Absolute Auto 100 /uL (0-450); Eosinophils Percent Auto 0.5 % (2-4); Hematocrit 44.1 % (36-46); Hemoglobin 14.4 g/dL (12.0-16.0); Lymphocytes Absolute Auto 500 /uL (1100-4500); Lymphocytes Percent Auto 4.3 % (25-40); Mean Corpuscular HGB Conc 32.7 % (30-36); Mean Corpuscular Hemoglobin 26.3 PG (26-34); Mean Corpuscular Volume 80.5 fL (80-100); Monocytes Absolute Auto 700 /uL (0-900); Neutrophils Absolute Auto 10500 /uL (1500-7000); Neutrophils Percent Auto 88.7 % (50-75); Platelet Count 455 X10^3/uL (150-400); Red Blood Cell Count 5.48 X10^6/uL (4.0-5.2); Red Cell Distribution Width 18.2 % (11.6-14.8); White Blood Cell Count 11.9 X10^3/uL (4.5-11.0)
[2023-12-27 15:08] LABS: HEMOLYSIS 23 (0-50); Iron 55 ug/dL (37-170)
[2023-12-27 15:10] LABS: Alanine Aminotransferase 16 IU/L (<35); Albumin 4.2 g/dL (3.5-5.0); Albumin Globulin Ratio 1.4 (1.0-2.8); Alkaline Phosphatase 73 U/L (38-126); Aspartate Aminotransferase 23 IU/L (14-36); BUN Creatinine Ratio 63.3 (6-22); Bilirubin Total 1.1 mg/dL (0.2-1.3); Blood Urea Nitrogen 38 mg/dL (7-17); Calcium 10.3 mg/dL (8.4-10.2); Carbon Dioxide 31 mmol/L (22-32); Chloride 96 mmol/L (98-107); Estimated Glomerular Filt Rate > 60 mL/min (>60); Globulin 2.9 g/dL (1.7-4.1); Glucose 88 mg/dL (80-110); HEMOLYSIS 23 (0-50); Potassium 4.2 mmol/L (3.4-5.1); Sodium 139 mmol/L (137-145); Total Protein 7.1 g/dL (6.3-8.2)
[2023-12-27 15:20] LABS: Percent Iron Saturation 23 % (15-50); Total Iron Binding Capacity 239 ug/dL (265-497); Transferrin 220 mg/dL (206-381)
[2023-12-27 15:39] LABS: TSH w/ Reflex to FT4 1.37 uIU/mL (0.47-4.68)
[2023-12-27 15:44] LABS: Ferritin 207 ng/mL (11-264)
== END ==
PROVIDERS: PCP Student in an Organized Health Care Education/Training Program; Referring Provider Student in an Organized Health Care Education/Training Program; Visit Provider Student in an Organized Health Care Education/Training Program
DX: R53.83 Other fatigue (principal)
CPT/HCPCS: 36415; 80053; 82728; 83540; 83550; 84443; 85025

== ENCOUNTER 2024-01-05 14:33 | Observation (INO) | payer MEDICARE, SELFPAY ==
[2024-01-05] VITALS (28 sets, daily range): BP systolic 118–176; BP diastolic 56–77; PULSE 64–99; RESP 18–42; TEMP 36.6; O2SAT 85–100; BMI 14.0
[2024-01-05] MEDS: PANTOPRAZOLE 40 MG VIAL 80 MG IV (15:26)
[2024-01-05] MEDS: ONDANSETRON 4 MG/2 ML INJ IV (15:26)
--- NOTE | 2024-01-05 15:39 | PC.NURSE ---
Pt 88% on RA, placed on 3L nasal canula, now 95% O2. states should be on home O2 but they weren't sure who to call.
--- NOTE | 2024-01-05 15:40 | ED.GIBLEED ---
HPI - GI Bleed General Chief complaint: GI Bleed Stated complaint: lethargic, dark stool Time Seen by Provider: 01/05/24 15:36 Source: patient Mode of arrival: Wheelchair History of Present Illness HPI Narrative: Patient is 74-year-old female history of small-cell lung cancer 8 years ago presenting today with increased weakness over the last 2 weeks. at bedside concern for black stool. She he feels like she is more short of breath. No fever chills or abdominal pain. She is cachectic looking he reports decreased appetite. He says that previously when she has acted the way has had a UTI. No fever or chills. She is not on any Pepto-Bismol she does not take iron she takes Nexium daily. Related Data Home Medications Medication Instructions Recorded Confirmed [NEXIUM] 30 mg PO Q DAY ##0 02/22/13 01/05/24 cholecalciferol (vitamin D3) 10 10 mcg PO DAILY 09/12/23 01/05/24 mcg (400 unit) capsule dronabinol 2.5 mg capsule 5 mg PO BID 01/05/24 01/05/24 esomeprazole magnesium 40 mg 40 mg PO DAILY 01/05/24 01/05/24 capsule,delayed release Previous Rx's Medication Instructions Recorded tiotropium 2.5 mcg-olodaterol 2.5 2 puff inhalation DAILY #4 grams 06/01/23 mcg/actuation mist for inhalation (Stiolto Respimat) Allergies Allergy/AdvReac Type Severity Reaction Status Date / Time codeine Allergy Vomiting Verified 01/05/24 14:37 Penicillins Allergy ITCHING Verified 01/05/24 14:37 Patient History Medical History Vision disorder COPD (chronic obstructive pulmonary disease) Chronic back pain Dementia Social History household members: spouse Smoking Status: Current every day smoker alcohol intake: current Smoking Status: Current every day smoker tobacco type: cigarettes alcohol intake frequency: holidays/special occasions only Substance Use Type: does not use Exam Initial Vital Signs Initial Vital Signs: Vital Signs Temperature 97.8 F 01/05/24 14:37 Pulse Rate 98 H 01/05/24 14:37 Respiratory Rate 18 01/05/24 14:37 Blood Pressure 118/56 L 01/05/24 14:37 Pulse Oximetry 95 01/05/24 14:37 Oxygen Delivery Method Room Air 01/05/24 14:37 GENERAL: Alert cachectic 74-year-old female HEENT: Head atraumatic,EOMI, pupils reactive, face symmetric, [moist] mucous membranes CARDIOVASCULAR: Regular rate and rhythm without murmurs, rubs or gallops. RESPIRATORY: Breath sounds equal bilaterally, no wheezes rales or rhonchi. ABDOMEN: Soft, nontender. Normoactive bowel sounds all 4 quadrants. No guarding or rebound. RECTAL: Gross stool brown guaiac-negative EXTREMITIES: Normal range of motion, no clubbing or edema. Neurovascularly intact NEUROLOGICAL: Alert and oriented x4.Normal gait and speech. SKIN: Warm, dry, no laceration, no petechiae, no rashes or lesions. Course Orders Ordered: Acetaminophen (Acetaminophen 325 Mg Tablet) 650 mg PO Q6H PRN PRN Reason: Fever/Mild Pain (1-3) Albuterol/Ipratropium (Albuterol/Ipratropium 3 Ml Ampul) 3 ml INH [id number] [facility] Last Admin: 01/06/24 06:27 Dose: Not Given Documented By: Albuterol/Ipratropium (Albuterol/Ipratropium 3 Ml Ampul) 3 ml INH RTQ2HR PRN PRN Reason: Wheezing Enoxaparin Sodium (Enoxaparin 30 Mg/0.3 Ml Syringe) 30 mg SUBCUT DAILY [facility] Lactated Ringer's (Lactated Ringers) 1,000 mls @ 60 mls/hr IV CONT [facility] Last Admin: 01/05/24 22:31 Dose: 60 mls/hr Documented By: SH Naloxone HCl (Naloxone 0.4 Mg/Ml Vial) 0.2 mg IV Q2MIN PRN PRN Reason: Opiate Reversal Ondansetron HCl (Ondansetron 4 Mg/2 Ml Inj) 4 mg IV NOW PRN PRN Reason: Nausea And Vomiting Last Admin: 01/05/24 15:26 Dose: 4 mg Documented By: RB Ondansetron HCl (Ondansetron 4 Mg Odt) 4 mg SL NOW PRN PRN Reason: Nausea And Vomiting Ondansetron HCl (Ondansetron 4 Mg/2 Ml Inj) 4 mg IV Q8HR PRN PRN Reason: Nausea And Vomiting Discontinued Medications Enoxaparin Sodium (Enoxaparin 40 Mg/0.4 Ml Syringe) 40 mg SUBCUT DAILY KEE Sodium Chloride (Normal Saline 0.9%) 1,000 mls @ 1,000 mls/hr IV BOLUS ONE Stop: 01/05/24 17:48 Last Infusion: 01/05/24 18:38 Dose: Infused Documented By: Admin: 01/05/24 17:20 Dose: 1,000 mls/hr Documented By: CAITIE(2) Non-Formulary Medication (Tiotropium-Olodaterol [Stiolto Respimat]) 2 puff INHALATION DAILY KEE Pantoprazole Sodium (Pantoprazole 40 Mg Vial) 80 mg IV NOW ONE Stop: 01/05/24 14:45 Last Admin: 01/05/24 15:26 Dose: 80 mg Documented By: ECHO Vital Signs Vital signs: Vital Signs - 8 hr 01/05/24 14:37 01/05/24 15:34 01/05/24 15:35 Temperature 97.8 F Pulse Rate 98 H 79 Respiratory Rate 18 Blood Pressure 118/56 L Pulse Oximetry 95 88 L 95 Oxygen Delivery Method Room Air Nasal Cannula Oxygen Flow Rate 3 01/05/24 15:45 01/05/24 15:45 01/05/24 16:00 Temperature Pulse Rate 69 67 Respiratory Rate 40 H 36 H Blood Pressure 155/67 H Pulse Oximetry 100 Oxygen Delivery Method Nasal Cannula Oxygen Flow Rate 1 01/05/24 16:00 01/05/24 16:15 01/05/24 16:15 Temperature Pulse Rate 70 Respiratory Rate 42 H Blood Pressure 156/67 H 157/69 H Pulse Oximetry 100 Oxygen Delivery Method Room Air Oxygen Flow Rate 01/05/24 16:30 01/05/24 16:30 01/05/24 16:46 Temperature Pulse Rate 72 80 Respiratory Rate 33 H 23 Blood Pressure 161/70 H Pulse Oximetry 97 94 Oxygen Delivery Method Room Air Oxygen Flow Rate 01/05/24 16:46 01/05/24 17:00 01/05/24 17:00 Temperature Pulse Rate 75 Respiratory Rate 30 H Blood Pressure 146/56 H 139/72 Pulse Oximetry 91 Oxygen Delivery Method Oxygen Flow Rate 01/05/24 17:15 01/05/24 17:15 01/05/24 17:30 Temperature Pulse Rate 69 72 Respiratory Rate 26 H 28 H Blood Pressure 153/68 H Pulse Oximetry 96 97 Oxygen Delivery Method Oxygen Flow Rate 01/05/24 17:30 01/05/24 17:46 01/05/24 17:46 Temperature Pulse Rate 80 Respiratory Rate 26 H Blood Pressure 159/70 H 176/69 H Pulse Oximetry 94 Oxygen Delivery Method Room Air Oxygen Flow Rate 01/05/24 18:00 01/05/24 18:01 01/05/24 18:01 Temperature Pulse Rate 80 73 Respiratory Rate 28 H 26 H Blood Pressure 154/67 H Pulse Oximetry 94 94 Oxygen Delivery Method Oxygen Flow Rate 01/05/24 18:15 01/05/24 18:15 01/05/24 19:15 Temperature Pulse Rate 75 Respiratory Rate 27 H Blood Pressure 156/74 H Pulse Oximetry 96 86 L Oxygen Delivery Method Oxygen Flow Rate MDM - GI Bleed Lab Data 01/05/24 15:21 01/05/24 15:21 Labs: Lab Results 01/05/24 01/05/24 Range/Units 15:21 18:46 WBC 14.3 H (4.5-11.0) X10^3/uL RBC 5.33 H (4.0-5.2) X10^6/uL Hgb 14.0 (12.0-16.0) g/dL Hct 43.2 (36-46) % MCV 81.1 (80-100) fL MCH 26.3 (26-34) PG MCHC 32.4 (30-36) % RDW 18.2 H (11.6-14.8) % Plt Count 413 H (150-400) X10^3/uL Neut % (Auto) 91.7 H (50-75) % Lymph % (Auto) 2.7 L (25-40) % [place] % (Auto) 4.7 (3-14) % Eos % (Auto) 0.6 L (2-4) % Baso % (Auto) 0.3 (0-2) % Neut # (Auto) 31131 H (3889-8271) /uL Lymph # (Auto) 400 L (6943-7925) /uL [place] # (Auto) 700 (0-900) /uL Eos # (Auto) 100 (0-450) /uL Baso # (Auto) 0 (0-100) /uL PT 11.8 (9.4-12.5) SECONDS INR 1.0 (0.9-1.3) APTT 32 (25.1-36.5) SECONDS Sodium 141 (137-145) mmol/L Potassium 3.7 (3.4-5.1) mmol/L Chloride 101 (98-107) mmol/L Carbon Dioxide 31 (22-32) mmol/L BUN 36 H (7-17) mg/dL Creatinine 0.60 (0.52-1.04) mg/dL Estimated GFR > 60 (>60) mL/min BUN/Creatinine Ratio 60.0 H (6-22) Glucose 126 H (80-110) mg/dL Calcium 9.9 (8.4-10.2) mg/dL Total Bilirubin 1.0 (0.2-1.3) mg/dL AST 21 (14-36) IU/L ALT 18 (<35) IU/L Alkaline Phosphatase 70 (38-126) U/L NT-Pro-B Natriuret Pep 2450 H (<450) pg/mL Total Protein 7.3 (6.3-8.2) g/dL Albumin 4.2 (3.5-5.0) g/dL Globulin 3.1 (1.7-4.1) g/dL Albumin/Globulin Ratio 1.4 (1.0-2.8) Urine RBC 0-1/hpf (0-5/HPF) Urine WBC 1-5/hpf (0-5/HPF) Ur Squamous Epith Cells 0-1 /hpf D (0-5/HPF) Amorphous Sediment 2+ Urine Bacteria None seen (None) Ur Culture Indicated? Specimen cultured Vol Urine Centrifuged 10ml (spun) Blood Type A Positive Antibody Screen Negative Urine Dip Bedside Urine Glucose Negative Bedside Urine Bilirubin - Negative Bedside Urine Ketone - Negative Urine Specific [place] 1.030 Bedside Urine Occult Blood ++ Bedside Urine pH 6.0 Bedside Urine Protein +/- 15 Bedside Urine Urobilinogen - Negative Bedside Urine Nitrite - Negative Bedside Urine Leukocytes +/- 15 Esterase Imaging Data Chest x-ray: Radiologist's Impression: PROCEDURE: XR CHEST 1V INDICATIONS: sob TECHNIQUE: One view of the chest was acquired. COMPARISON: None. FINDINGS: Surgical changes and devices: Cholecystectomy clips. Lungs and pleura: Lungs are clear. No pneumothorax. Small left pleural effusion. Lungs hyperinflated suggesting COPD. Mediastinum: Mediastinal contours appear normal. Heart size is normal. Bones and chest wall: No suspicious bony lesions. Overlying soft tissues appear unremarkable. IMPRESSION: Small left pleural effusion. Dictated by: Brie Wade MD, PhD on 01/05/2024 at 17:07 ECG Data Interpretation: Sinus rhythm rate 71 CA interval 122 QRS 72 QTC 423 artifact noted obvious ischemic changes MDM Narrative Medical decision making narrative: Patient is a 74-year-old female who is very cachectic presenting today with increasing weakness. Has been concerned for black stool that has been ongoing for the last 2 weeks. She overall is a poor historian primary history is from . He reports increasing shortness of breath over the last couple weeks as well. She has decreased intake generally weak and fatigued. She has been afebrile. On exam hemoccult is negative she has no pain obviously cachectic. Blood work not show any evidence of anemia no DEWAYNE or electrolyte abnormality urinalysis is negative Chest x-ray does not show any evidence cardiopulmonary At this time no evidence of rectal bleeding she is mild leukocytosis of 14 previously was 15 it seems relatively stable. Urinalysis does show some small amount of blood but no obvious infection. At this time I think most of her problems are probably chronic recommend outpatient follow-up no need for admission. After talking with and patient more he reports that she has significant shortness of breath. Upon ambulation trial patient made it 2 steps and O2 dropped to 86% on room air. Patient was sent for CT to rule out pulmonary embolism although I suspect that her hypoxia secondary to her chronic COPD. She has no evidence of anemia. CT for PE was done with remote history of small-cell lung cancer. No evidence of PE but she does some lymph nodes and soft tissue density in the left hilum. Patient unable to go home secondary to need for oxygen. Patient signed out to Dr. Ortiz Discharge Plan Departure Patient Disposition: Admitted as Observation Clinical Impression: Hypoxia Admit Date/Time: 01/05/24 21:09 Admit Provider: Donaldo Lott
[2024-01-05 15:44] LABS: Prothrombin Time 11.8 SECONDS (9.4-12.5)
[2024-01-05 15:51] LABS: Add Manual Diff / Slide Review NO; Basophils Absolute Auto 0 /uL (0-100); Basophils Percent Auto 0.3 % (0-2); Eosinophils Absolute Auto 100 /uL (0-450); Eosinophils Percent Auto 0.6 % (2-4); Hematocrit 43.2 % (36-46); Lymphocytes Absolute Auto 400 /uL (1100-4500); Lymphocytes Percent Auto 2.7 % (25-40); Mean Corpuscular HGB Conc 32.4 % (30-36); Mean Corpuscular Hemoglobin 26.3 PG (26-34); Mean Corpuscular Volume 81.1 fL (80-100); Monocytes Absolute Auto 700 /uL (0-900); Monocytes Percent Auto 4.7 % (3-14); Neutrophils Absolute Auto 13100 /uL (1500-7000); Neutrophils Percent Auto 91.7 % (50-75); PTT Partial Thromboplastin Tim 32 SECONDS (25.1-36.5); Platelet Count 413 X10^3/uL (150-400); Red Blood Cell Count 5.33 X10^6/uL (4.0-5.2); Red Cell Distribution Width 18.2 % (11.6-14.8); White Blood Cell Count 14.3 X10^3/uL (4.5-11.0)
[2024-01-05 16:02] LABS: Alanine Aminotransferase 18 IU/L (<35); Albumin 4.2 g/dL (3.5-5.0); Albumin Globulin Ratio 1.4 (1.0-2.8); Alkaline Phosphatase 70 U/L (38-126); Aspartate Aminotransferase 21 IU/L (14-36); Blood Urea Nitrogen 36 mg/dL (7-17); Calcium 9.9 mg/dL (8.4-10.2); Carbon Dioxide 31 mmol/L (22-32); Chloride 101 mmol/L (98-107); Estimated Glomerular Filt Rate > 60 mL/min (>60); Globulin 3.1 g/dL (1.7-4.1); Glucose 126 mg/dL (80-110); HEMOLYSIS < 15 (0-50); Potassium 3.7 mmol/L (3.4-5.1); Sodium 141 mmol/L (137-145); Total Protein 7.3 g/dL (6.3-8.2)
--- NOTE | 2024-01-05 16:49 | DI.RAD.S_ITS ---
PROCEDURE: XR CHEST 1V INDICATIONS: sob TECHNIQUE: One view of the chest was acquired. COMPARISON: None. FINDINGS: Surgical changes and devices: Cholecystectomy clips. Lungs and pleura: Lungs are clear. No pneumothorax. Small left pleural effusion. Lungs hyperinflated suggesting COPD. Mediastinum: Mediastinal contours appear normal. Heart size is normal. Bones and chest wall: No suspicious bony lesions. Overlying soft tissues appear unremarkable. IMPRESSION: Small left pleural effusion. Dictated by: Brie Wade MD, PhD on 01/05/2024 at 17:07 Approved by: Brie Wade MD, PhD on 01/05/2024 at 17:07
[2024-01-05] MEDS: SODIUM CHLORIDE 0.9% 1,000 ML 1000 ML IV (17:20)
[2024-01-05 19:04] LABS: Amorphous Sediment Urine 2+; Bacteria Urine None Seen; Culture Indicated Urine Specimen Cultured; RBC Urine 0-1/HPF (0-5/HPF); Squamous Epithelial Cell Urine 0-1 /HPF (0-5/HPF); Urine Volume 10mL (spun); WBC Urine 1-5/HPF (0-5/HPF)
--- NOTE | 2024-01-05 19:07 | DI.CT.S_ITS ---
PROCEDURE: CT ANGIO CHEST PE PROTOCOL INDICATIONS: hypoxic TECHNIQUE: After the administration of intravenous contrast, 2 mm thick sections acquired from the pulmonary apices to the posterior costophrenic angles. 3-dimensional maximum intensity projection (MIP) coronal and sagittal reformats were then acquired through the thorax. For radiation dose reduction, the following was used: automated exposure control, adjustment of mA and/or kV according to patient size. COMPARISON: Outside Film, CT, CT CHEST WITH CONTRAST, 05/12/2021, 12:49. FINDINGS: Image quality: Diagnostic. Pulmonary arteries: Pulmonary arteries are normal in size, and demonstrate no intraluminal filling defects to suggest central pulmonary embolism. Lower Neck: No enlarged lymph nodes. Thyroid: No thyroid nodules which require sonographic follow up, per consensus guidelines. Axillae: No enlarged lymph nodes. Chest Wall: Unremarkable. Bones: Unremarkable. Lungs and Pleura: Soft tissue thickening and masslike consolidation within the left hilum is increased compared to prior encasing multiple pulmonary arteries with mild narrowing. There is associated architectural distortion and traction bronchiectasis. Extension of soft tissue attenuation wall superiorly and inferiorly along the hilar vessels as well as to the left lower lobe pleural surface. This soft tissue attenuation extends into the mediastinum. Moderate to severe emphysematous changes are noted , most notably within the right base and left lower lobe. 3 mm lobe right upper lobe pulmonary nodule (/91) is not definitely seen on prior. Heart: Heart size is normal. Moderate coronary artery calcifications. No pericardial effusion. Thoracic Vessels: No aortic aneurysm. Atherosclerotic vascular calcifications. Mediastinum and Louise: No enlarged lymph nodes. Esophagus: No wall thickening. No hiatal hernia. Upper Abdomen: Partially visualized biliary ductal dilatation. Stable thickening and nodularity of the left adrenal gland. Enlarged aortocaval lymph node measuring 1.8 x 1.7 cm (6/138). IMPRESSION: No pulmonary embolus. Soft tissue density within the left hilum extending into the mediastinum with associated traction bronchiectasis and architectural distortion as described above. Differential includes post radiation changes. Recurrent disease is not excluded. Enlarged aortocaval lymph node measuring 1.8 x 1.7 cm within the superior abdomen, metastatic disease is in the differential. 3 mm right upper lobe pulmonary nodules not definitely seen on prior, attention on follow-up exam. Dictated by: Edvin Linares M.D. on 01/05/2024 at 20:05 Approved by: Edvin Linares M.D. on 01/05/2024 at 20:14
--- NOTE | 2024-01-05 19:29 | PC.NURSE ---
Son [phone]
--- NOTE | 2024-01-05 20:41 | PC.NURSE ---
Patient is slightly confused. When asked the year she states it is 2022, and that she missed new years. Patient is unsure of time of day. Patient is unable to remember that her told her he was leaving to go home. Patient pulled out her IV. Charge nurse aware that when admitted, patient will need to be close to the nurses station. Patient is taking her watch on and off stating shes not sure if she wants it on or off. Patient reoriented to year and situation, told to leave her monitor and O2 sat on though she keeps taking things off. Patient is keeping oxygen in nose. Patient denies any shortness of breath, chest pain, abdominal pain, or any other complaints at this time. Equal rise and fall of chest, no risngs of respiratory distress at this time.
[2024-01-05] MEDS: LACTATED RINGERS 1,000 ML 60 ML IV (22:31)
--- NOTE | 2024-01-05 23:40 | PC.ADMIT ---
[email or web address] [facility] Admission Note: Patient admitted to AC unit from ED at 21:25, transferred via stretcher. Stand pivot to bed. Alert and oriented to self, place, situation. LR @ 100/hr. Oriented to room and call light, bed in low locked position and call light on. The patient,Luanne Johnson,74 y/o, was given written information regarding hospital policies, unit procedures and contact persons. Patient's smoking status: Current every day smoker. Vital Signs - 8 hr 01/05/24 15:45 01/05/24 15:45 01/05/24 16:00 Pulse Rate 69 67 Respiratory Rate 40 H 36 H Blood Pressure 155/67 H Pulse Oximetry 100 Oxygen Delivery Method Nasal Cannula Oxygen Flow Rate 1 01/05/24 16:00 01/05/24 16:15 01/05/24 16:15 Pulse Rate 70 Respiratory Rate 42 H Blood Pressure 156/67 H 157/69 H Pulse Oximetry 100 Oxygen Delivery Method Room Air Oxygen Flow Rate 01/05/24 16:30 01/05/24 16:30 01/05/24 16:46 Pulse Rate 72 80 Respiratory Rate 33 H 23 Blood Pressure 161/70 H Pulse Oximetry 97 94 Oxygen Delivery Method Room Air Oxygen Flow Rate 01/05/24 16:46 01/05/24 17:00 01/05/24 17:00 Pulse Rate 75 Respiratory Rate 30 H Blood Pressure 146/56 H 139/72 Pulse Oximetry 91 Oxygen Delivery Method Oxygen Flow Rate 01/05/24 17:15 01/05/24 17:15 01/05/24 17:30 Pulse Rate 69 72 Respiratory Rate 26 H 28 H Blood Pressure 153/68 H Pulse Oximetry 96 97 Oxygen Delivery Method Oxygen Flow Rate 01/05/24 17:30 01/05/24 17:46 01/05/24 17:46 Pulse Rate 80 Respiratory Rate 26 H Blood Pressure 159/70 H 176/69 H Pulse Oximetry 94 Oxygen Delivery Method Room Air Oxygen Flow Rate 01/05/24 18:00 01/05/24 18:01 01/05/24 18:01 Pulse Rate 80 73 Respiratory Rate 28 H 26 H Blood Pressure 154/67 H Pulse Oximetry 94 94 Oxygen Delivery Method Oxygen Flow Rate 01/05/24 18:15 01/05/24 18:15 02/22/24 18:30 Pulse Rate 75 74 Respiratory Rate 27 H 35 H Blood Pressure 156/74 H Pulse Oximetry 96 93 Oxygen Delivery Method Oxygen Flow Rate 01/05/24 18:30 01/05/24 18:45 01/05/24 18:45 Pulse Rate 73 Respiratory Rate 34 H Blood Pressure 155/70 H 172/77 H Pulse Oximetry 94 Oxygen Delivery Method Nasal Cannula Oxygen Flow Rate 3 01/05/24 19:00 01/05/24 19:15 01/05/24 19:40 Pulse Rate 79 86 Respiratory Rate 25 H 36 H Blood Pressure Pulse Oximetry 85 L 86 L Oxygen Delivery Method Room Air Oxygen Flow Rate 01/05/24 20:00 01/05/24 20:15 01/05/24 20:15 Pulse Rate 99 H 69 Respiratory Rate 20 18 Blood Pressure 167/72 H Pulse Oximetry 100 Oxygen Delivery Method Oxygen Flow Rate 01/05/24 20:30 01/05/24 20:30 01/05/24 20:45 Pulse Rate 74 Respiratory Rate 20 Blood Pressure 150/67 H 158/70 H Pulse Oximetry 98 Oxygen Delivery Method Oxygen Flow Rate 01/05/24 20:45 01/05/24 21:00 01/05/24 21:00 Pulse Rate 69 69 Respiratory Rate 20 18 Blood Pressure 146/65 H Pulse Oximetry 100 Oxygen Delivery Method Oxygen Flow Rate 01/05/24 21:15 01/05/24 21:15 01/05/24 21:30 Pulse Rate 64 Respiratory Rate 20 Blood Pressure 160/72 H 158/70 H Pulse Oximetry 100 Oxygen Delivery Method Oxygen Flow Rate 01/05/24 21:30 Pulse Rate 65 Respiratory Rate 18 Blood Pressure Pulse Oximetry 100 Oxygen Delivery Method Oxygen Flow Rate
[2024-01-06] VITALS (7 sets, daily range): BP systolic 145; BP diastolic 51; PULSE 62–70; RESP 19–24; TEMP 36.2; O2SAT 2–99
[2024-01-06 00:52] LABS: NT-proBNP (BNP-Adult 18+) 2450 pg/mL (<450)
[2024-01-06] MEDS: ENOXAPARIN 30 MG/0.3 ML SYRINGE SUBCUT (08:12)
[2024-01-06] MEDS: ALBUTEROL/IPRATROPIUM 3 ML AMPUL INH ×2 (09:12→14:25)
--- NOTE | 2024-01-06 12:36 | P.HP_ITS ---
History of Present Illness History of Present Illness Date Patient Seen: 01/06/24 Time Patient Seen: 12:15 Chief complaint: lethargic, dark stool Narrative: Patient presented to ED for progressive weakness and concern of tarry black stool. She has a hx of small cell lung cancer 8 years ago. provides all of the history. He reports she is barely eating and has minimal stool but he noticed it was black and came in for evaluation. He does feel like she is more short of breath. No fevers or chills. No changes to medications. She continues to have issues with mentation and dementia. [facility] Medical History Vision disorder COPD (chronic obstructive pulmonary disease) Chronic back pain Dementia Social History household members: spouse Smoking Status: Current every day smoker alcohol intake: current Meds Home Medications and Allergies Home Medications Medication Instructions Recorded Confirmed Type [NEXIUM] 30 mg PO Q DAY ##0 02/22/13 01/05/24 History tiotropium 2.5 mcg-olodaterol 2.5 2 puff inhalation DAILY #4 grams 06/01/23 01/05/24 Rx mcg/actuation mist for inhalation (Stiolto Respimat) cholecalciferol (vitamin D3) 10 10 mcg PO DAILY 09/12/23 01/05/24 History mcg (400 unit) capsule dronabinol 2.5 mg capsule 5 mg PO BID 01/05/24 01/05/24 History esomeprazole magnesium 40 mg 40 mg PO DAILY 01/05/24 01/05/24 History capsule,delayed release Allergies Allergy/AdvReac Type Severity Reaction Status Date / Time Penicillins Allergy Severe Anaphylaxis Verified 01/06/24 11:14 codeine Allergy Vomiting Verified 01/05/24 14:37 Exam Vital Signs (past 8 hours): - 01/06/24 06:00 01/06/24 09:12 01/06/24 10:00 Pulse Rate 68 Respiratory Rate 20 Pulse Oximetry 98 94 2 L Oxygen Delivery Method Nasal Cannula Nasal Cannula Nasal Cannula Oxygen Flow Rate 2 2 90 Oxygen Delivery Method Nasal Cannula Oxygen Flow Rate 90 Narrative Exam Narrative: GENERAL: Alert cachectic 74-year-old female HEENT: Head atraumatic,EOMI, pupils reactive, face symmetric, [moist] mucous membranes CARDIOVASCULAR: Regular rate and rhythm without murmurs, rubs or gallops. RESPIRATORY: Breath sounds equal bilaterally, no wheezes rales or rhonchi. ABDOMEN: Soft, nontender. Normoactive bowel sounds all 4 quadrants. No guarding or rebound. EXTREMITIES: Normal range of motion, no clubbing or edema. Neurovascularly intact NEUROLOGICAL: Alert and oriented x4.Normal gait and speech. SKIN: Warm, dry, no laceration, no petechiae, no rashes or lesions. Objective Labs 01/05/24 15:21 01/05/24 15:21 Labs: Laboratory Results - last 24 hr 01/05/24 01/05/24 15:21 18:46 WBC 14.3 H RBC 5.33 H Hgb 14.0 Hct 43.2 MCV 81.1 MCH 26.3 MCHC 32.4 RDW 18.2 H Plt Count 413 H Neut % (Auto) 91.7 H Lymph % (Auto) 2.7 L [place] % (Auto) 4.7 Eos % (Auto) 0.6 L Baso % (Auto) 0.3 Neut # (Auto) 47096 H Lymph # (Auto) 400 L [place] # (Auto) 700 Eos # (Auto) 100 Baso # (Auto) 0 PT 11.8 INR 1.0 APTT 32 Sodium 141 Potassium 3.7 Chloride 101 Carbon Dioxide 31 BUN 36 H Creatinine 0.60 Estimated GFR > 60 BUN/Creatinine Ratio 60.0 H Glucose 126 H Calcium 9.9 Total Bilirubin 1.0 AST 21 ALT 18 Alkaline Phosphatase 70 NT-Pro-B Natriuret Pep 2450 H Total Protein 7.3 Albumin 4.2 Globulin 3.1 Albumin/Globulin Ratio 1.4 Urine RBC 0-1/hpf Urine WBC 1-5/hpf Ur Squamous Epith Cells 0-1 /hpf D Amorphous Sediment 2+ Urine Bacteria None seen Ur Culture Indicated? Specimen cultured Vol Urine Centrifuged 10ml (spun) Blood Type A Positive Antibody Screen Negative Assessment & Plan Assessment and plan (1) Hypoxia: Status: Acute (2) Cachectic: Status: Acute (3) Muscle atrophy: Qualifiers: Muscle atrophy area: unspecified site Qualified Code(s): M62.50 - Muscle wasting and atrophy, not elsewhere classified, unspecified site Status: Acute (4) Shortness of breath: Status: Acute Plan 74 yo F with history of small cell lung cancer who presented with increasing weakness and black stool admitted for hypoxia. Hemoccult exam negative. Blood work without evidence of anemia or other abnormalities. Chest xray normal. CT was done for PE showing soft tissue density within the left hilum, enlarged lymph node within the superior abdomen, and new pulmonary nodules. -admitted overnight for stabilization of hypoxia -BNP elevated, however lungs clear and no edema present, heart normal size on chest CTA Quality VTE Deep Vein Thrombosis/Pulmonary Embolism Present on Admission: No
--- NOTE | 2024-01-06 12:36 | PM.DS.1 ---
History of Present Illness History of Present Illness Date Patient Seen: 01/06/24 Time Patient Seen: 12:15 Chief complaint: lethargic, dark stool Narrative: Patient presented to ED for progressive weakness and concern of tarry black stool. She has a hx of small cell lung cancer 8 years ago. provides all of the history. He reports she is barely eating and has minimal stool but he noticed it was black and came in for evaluation. He does feel like she is more short of breath. No fevers or chills. No changes to medications. She continues to have issues with mentation and dementia. Discharge Providers Provider Date of admission: 01/05/24 21:09 Discharge Date: 01/06/24 Primary care physician: Rosa Alegria MD Discharge provider: Rosa Alegria MD Summary Hospital Course Discharge Diagnosis: hypoxia Hospital Course: Patient improved with oxygen. Does not require oxygen at rest but needs home 02 with ambulation. Status at Discharge Cognitive/behavioral status at discharge: at baseline, confused Functional status at discharge: uses cane/walker Overall status at discharge: patient is progressing back to baseline Time Spent with Patient Time spent: Greater than 30 minutes Exam Vital Signs (past 8 hours): - 01/06/24 06:00 01/06/24 09:12 01/06/24 10:00 Pulse Rate 68 Respiratory Rate 20 Pulse Oximetry 98 94 2 L Oxygen Delivery Method Nasal Cannula Nasal Cannula Nasal Cannula Oxygen Flow Rate 2 2 90 Oxygen Delivery Method Nasal Cannula Oxygen Flow Rate 90 Narrative Exam Narrative: GENERAL: Alert cachectic 74-year-old female HEENT: Head atraumatic,EOMI, pupils reactive, face symmetric, [moist] mucous membranes CARDIOVASCULAR: Regular rate and rhythm without murmurs, rubs or gallops. RESPIRATORY: Breath sounds equal bilaterally, no wheezes rales or rhonchi. ABDOMEN: Soft, nontender. Normoactive bowel sounds all 4 quadrants. No guarding or rebound. EXTREMITIES: Normal range of motion, no clubbing or edema. Neurovascularly intact NEUROLOGICAL: Alert and oriented x4.Normal gait and speech. SKIN: Warm, dry, no laceration, no petechiae, no rashes or lesions. Objective Labs 01/05/24 15:21 01/05/24 15:21 Labs: Laboratory Results - last 24 hr 01/05/24 01/05/24 15:21 18:46 WBC 14.3 H RBC 5.33 H Hgb 14.0 Hct 43.2 MCV 81.1 MCH 26.3 MCHC 32.4 RDW 18.2 H Plt Count 413 H Neut % (Auto) 91.7 H Lymph % (Auto) 2.7 L [place] % (Auto) 4.7 Eos % (Auto) 0.6 L Baso % (Auto) 0.3 Neut # (Auto) 46810 H Lymph # (Auto) 400 L [place] # (Auto) 700 Eos # (Auto) 100 Baso # (Auto) 0 PT 11.8 INR 1.0 APTT 32 Sodium 141 Potassium 3.7 Chloride 101 Carbon Dioxide 31 BUN 36 H Creatinine 0.60 Estimated GFR > 60 BUN/Creatinine Ratio 60.0 H Glucose 126 H Calcium 9.9 Total Bilirubin 1.0 AST 21 ALT 18 Alkaline Phosphatase 70 NT-Pro-B Natriuret Pep 2450 H Total Protein 7.3 Albumin 4.2 Globulin 3.1 Albumin/Globulin Ratio 1.4 Urine RBC 0-1/hpf Urine WBC 1-5/hpf Ur Squamous Epith Cells 0-1 /hpf D Amorphous Sediment 2+ Urine Bacteria None seen Ur Culture Indicated? Specimen cultured Vol Urine Centrifuged 10ml (spun) Blood Type A Positive Antibody Screen Negative [facility] Medical History Vision disorder COPD (chronic obstructive pulmonary disease) Chronic back pain Dementia Social History household members: spouse Smoking Status: Current every day smoker alcohol intake: current Discharge Assessment & Plan Assessment and Plan Assessment: 74 yo F with history of small cell lung cancer who presented with increasing weakness and black stool admitted for hypoxia. Hemoccult exam negative. Blood work without evidence of anemia or other abnormalities. Chest xray normal. CT was done for PE showing soft tissue density within the left hilum, enlarged lymph node within the superior abdomen, and new pulmonary nodules. No PE. -admitted overnight for stabilization of hypoxia -improved with oxygen, recommend home O2, order placed for RT eval and home 02 -BNP elevated, however lungs clear and no edema present, heart normal size on chest CTA -discussed with that patient needs follow up with oncology KIANNA, he will call to schedule, copy of CT results given -home PT and OT already established, will continue with that -follow up with me on Tuesday for ongoing management and coordination of care Discharge Plan Discharge Plan Patient Disposition: Home Discharge orders & Medications Prescriptions: Continued cholecalciferol (vitamin D3) 10 mcg (400 unit) capsule 10 mcg PO DAILY [NEXIUM] 30 mg PO Q DAY Qty: 0 dronabinol 2.5 mg capsule 5 mg PO BID esomeprazole magnesium 40 mg capsule,delayed release(DR/EC) 40 mg PO DAILY Stiolto Respimat 2.5-2.5 mcg/actuation mist 2 puff inhalation DAILY Qty: 4 11RF Follow up/Referrals: Rosa Alegria MD [Primary Care Provider] - Visit Report/Discharge Packet Instructions: DI for Muscle Weakness Stand Alone Forms: Patient Portal/API, Stroke Signs & Symptoms Discharge Data Primary Care Provider: Rosa Alegria Attending Provider: Donaldo Lott Admit Date/Time: 01/05/24 21:09 Quality VTE Deep Vein Thrombosis/Pulmonary Embolism Present on Admission: No
--- NOTE | 2024-01-06 13:36 | CM.DANOTE ---
Initial DCP Assessment Note Pt is a 74 yo female, resident of [place], [facility], arrives w/spouse for complaints of black stool and shortness of breath. Patient with hx of small-cell lung cancer admitted for O2. According to Dr Alegria, RT has been ordered for home O2 eval and patient will discharge home with spouse later today. PCP: Rosa Alegria Payer: [facility] Reviewed chart, met w/patient and spouse Son, patient w/dementia and did not participate in this conversation. According to spouse, patient requires assist with all ADLs, sleeps in her recliner; for the last 2 months has had a decrease in appetite, poor sleep habits, and patient often says she needs to have a BM all the time but cannot have one when she tries. Patient/spouse do not have children but do have nieces and nephews that live in [place]. Spouse plans to take patient home and hopeful she will have home O2 arranged before return home. Spouse would like patient[facility] services resumed for their return home. Plan: Discharge home expected today w/spouse and resumption of [facility]. Likely new home O2 if patient qualifies. [facility] will be updated with patient's return home. DIPAK Bosch Discharge Planning/Care Management CM Discharge Assessment Start: 01/06/24 13:26 Freq: Status: Active Protocol: Document 01/06/24 13:26 QUANG (Rec: 01/06/24 13:36 QUANG [id number]) Discharge Planning Assessment Assigned Dog Warden DIPAK Quinones DPOA/Assigned Designee Name Son Johnson, spouse Contact Information [phone] Advance Directives? No History Provided By Significant Other,Medical Record Prior Living Arrangements House Household Members spouse Type of transporation used prior to Relies on Others admit Independent with ADL's No Is patient alert and oriented? No Needs Assistance With Bathing,Grooming,Meal Prep, Toileting,Managing Medications ,Home Chores / Shopping Comment Patient needs assist with most ADLs related to her dementia Patient/Family Preference Home with Home Health Barriers to Discharge No Comment Home w/spouse Discharge Plan Home with Home Health Transportation Arrangement Spouse Referrals Initiated Home Health Additional Comment Resumption of [facility] per spouse's request
--- NOTE | 2024-01-06 15:42 | PC.NURSE ---
Pt resting at intervals Up to the BR several times w/no results SpO2 desats w/o O2 . to 8% O2 2 @ 2L sat 92 Pt and spouse wanting to go home SL D/C intact Home O2 all arranged for home D/C instructions given w/understanding. Pt escorted by staff via W/C to waiting vehicle
== END 2024-01-06 15:40 | disposition home or self-care (01) ==
LOC: ED 19:44 → AC 21:09
PROVIDERS: Admitting Provider Family Medicine; Emergency Provider Emergency Medicine; PCP Student in an Organized Health Care Education/Training Program; Referring Provider Emergency Medicine; Visit Provider Family Medicine
DX: R09.02 Hypoxemia (principal); R06.02 Shortness of breath; R64 Cachexia; R53.1 Weakness; M62.50 Muscle wasting and atrophy, not elsewhere classified, unspecified site; Z85.118 Personal history of other malignant neoplasm of bronchus and lung
CPT/HCPCS: 36415; 71045; 71275; 80053; 81003; 81015; 83880; 85025; 85610; 85730; 86850; 86900; 86901; 87077; 87086; 87186; 93005; 94618; 94640; 94760; 96361; 96372; 96374; 96375; 99285; G0378; C9113; J1650; J2405